=== PATIENT | male | born 1940 ===

== ENCOUNTER 2020-01-24 20:30 | Emergency (ER) | payer MEDICARE ==
[2020-01-24] MEDS: Sodium Chloride 0.9% 1,000 ML IV SCH (20:41)
[2020-01-24] MEDS ORDERED: Aspirin 81 MG Tab.Chew PO ONE ×2 (20:46→23:53)
[2020-01-24] MEDS ORDERED: Heparin Sodium 5,000 Units/ML Vial IVPUSH ONE (20:49)
[2020-01-24] MEDS ORDERED: Heparin Sodium/D5W 25,000 UNITS/500 ML BAG IV SCH (21:00)
[2020-01-24] MEDS: Adenosine 12 MG/4 ML SDV IVPUSH ONE ×4 (22:03→22:28)
[2020-01-24] MEDS ORDERED: Metoprolol Tartrate 5 MG/5 ML SDV ONE (22:38)
--- NOTE | 2020-01-24 22:49 | EDM.PDOC ---
ED HPI GENERAL MEDICAL PROBLEM - General Chief Complaint: Respiratory Problem Stated Complaint: CHEST PAIN Time Seen by Provider: 01/24/20 20:33 Source of Information: Reports: Patient, EMS History Limitations: Reports: No Limitations - History of Present Illness INITIAL COMMENTS - FREE TEXT/NARRATIVE: PMH SVT, PE. Patient developed right sided sharp chest pain with SOB. He s tates it feels like previous PE. See E[facility] for additional charting. Location: Reports: Chest Improves with: Reports: None Worsens with: Reports: Breathing Associated Symptoms: Reports: Chest Pain, Shortness of Breath chest pain Pain Score (Numeric/FACES): 3 - Related Data Allergies Allergy/AdvReac Type Severity Reaction Status Date / Time No Known Allergies Allergy Verified 01/24/20 21:26 ED ROS GENERAL - Review of Systems Review Of Systems: See Below Constitutional: Reports: No Symptoms HEENT: Reports: No Symptoms Respiratory: Reports: Shortness of Breath Cardiovascular: Reports: Chest Pain Endocrine: Reports: No Symptoms GI/Abdominal: Reports: No Symptoms : Reports: No Symptoms Musculoskeletal: Reports: No Symptoms Skin: Reports: No Symptoms Neurological: Reports: No Symptoms Psychiatric: Reports: No Symptoms Hematologic/Lymphatic: Reports: No Symptoms ED EXAM, GENERAL - Physical Exam Exam: See Below Exam Limited By: No Limitations General Appearance: Alert, No Apparent Distress Nose: Normal Inspection Throat/Mouth: Normal Inspection, Normal Oropharynx Head: Atraumatic Neck: Normal Inspection, Full Range of Motion Respiratory/Chest: Lungs Clear Cardiovascular: Normal Peripheral Pulses, Regular Rate, Rhythm, No Edema, No JVD, No Murmur Peripheral Pulses: 3+: Carotid (L), Carotid (R), Dorsalis Pedis (L), Dorsalis Pedis (R) GI/Abdominal: Normal Bowel Sounds, Soft, Non-Tender, No Distention Extremities: Normal Inspection, Normal Range of Motion, No Pedal Edema, Normal Capillary Refill Neurological: Alert, Oriented, Normal Cognition, No Motor/Sensory Deficits Psychiatric: Normal Affect, Normal Mood Skin Exam: Warm, Dry, Intact Course - Vital Signs Last Recorded V/S: Last Vital Signs Temp 98.2 F 01/24/20 21:14 Pulse 77 01/24/20 21:14 Resp 23 H 01/24/20 21:14 BP 149/86 H 01/24/20 21:14 Pulse Ox 95 01/24/20 21:14 - Orders/Labs/Meds Orders: Active Orders 24 hr Category Date Time Status Chest w Cont [CT] Stat Exams 01/24/20 20:46 Taken Heparin Sodium/D5W [Heparin 25,000 Units in D5W 500 ML] Med 01/24/20 21:00 Active 25,000 units in 500 ml IV TITRATE Medication Orders Heparin Sodium/Dextrose (Heparin 25,000 Units In D5w 500 Ml) 25,000 units in 500 mls @ 26 mls/hr IV TITRATE LIZ; Protocol Labs: Laboratory Tests 01/24/20 01/24/20 01/24/20 Range/Units 20:46 20:46 20:46 WBC 9.4 (4.0-11.0) K/uL RBC 4.46 L (4.50-6.50) M/uL Hgb 14.6 (13.0-18.0) g/dL Hct 42.1 (40.0-54.0) % MCV 94 (76-96) fL MCH 32.7 H (27.0-32.0) pg MCHC 34.7 (31.0-35.0) g/dL RDW 12.8 (11.0-16.0) % Plt Count 168 (150-400) K/uL MPV 9.6 (6.0-10.0) fL Neut % (Auto) 64.9 (45.0-70.0) % Lymph % (Auto) 24.4 (20.0-40.0) % [place] % (Auto) 9.2 (3.0-10.0) % Eos % (Auto) 1.0 (1.0-5.0) % Baso % (Auto) 0.5 (0.0-0.5) % Neut # (Auto) 6.10 (2.00-7.50) K/uL Lymph # (Auto) 2.30 (1.50-4.00) K/uL [place] # (Auto) 0.87 H (0.20-0.80) K/uL Eos # (Auto) 0.09 (0.04-0.40) K/uL Baso # (Auto) 0.05 (0.02-0.10) K/uL APTT (24.4-33.2) SECONDS D-Dimer, Quantitative 1020 H (0-400) ng/mL Sodium 141 (136-145) mmol/L Potassium 4.0 (3.5-5.1) mmol/L Chloride 103 (98-107) mmol/L Carbon Dioxide 28.2 (21.0-32.0) mmol/L Anion Gap 13.8 (5.0-15.0) mmol/L BUN 15 (8-26) mg/dL Creatinine 1.44 H (0.70-1.30) mg/dL Est Cr Clr Drug Dosing TNP Estimated GFR (MDRD) 48 L (>60) MLS/MIN BUN/Creatinine Ratio 10.4 (6-25) Glucose 122 H (74-100) mg/dL Calcium 8.7 (8.5-10.1) mg/dL Total Bilirubin 0.8 (0.0-1.0) mg/dL AST 17 (15-37) U/L ALT 20 (12-78) U/L Alkaline Phosphatase 95 (46-116) U/L Troponin I < 0.017 (0.000-0.060) ng/mL Total Protein 7.0 (6.4-8.2) g/dL Albumin 3.7 (3.4-5.0) g/dL Globulin 3.3 (2.2-4.2) g/dL Albumin/Globulin Ratio 1.1 (0.8-2.0) SARS CoV-2 RNA Rapid EMILY 01/24/20 01/24/20 Range/Units 20:49 21:08 WBC (4.0-11.0) K/uL RBC (4.50-6.50) M/uL Hgb (13.0-18.0) g/dL Hct (40.0-54.0) % MCV (76-96) fL MCH (27.0-32.0) pg MCHC (31.0-35.0) g/dL RDW (11.0-16.0) % Plt Count (150-400) K/uL MPV (6.0-10.0) fL Neut % (Auto) (45.0-70.0) % Lymph % (Auto) (20.0-40.0) % [place] % (Auto) (3.0-10.0) % Eos % (Auto) (1.0-5.0) % Baso % (Auto) (0.0-0.5) % Neut # (Auto) (2.00-7.50) K/uL Lymph # (Auto) (1.50-4.00) K/uL [place] # (Auto) (0.20-0.80) K/uL Eos # (Auto) (0.04-0.40) K/uL Baso # (Auto) (0.02-0.10) K/uL APTT 24.6 (24.4-33.2) SECONDS D-Dimer, Quantitative (0-400) ng/mL Sodium (136-145) mmol/L Potassium (3.5-5.1) mmol/L Chloride (98-107) mmol/L Carbon Dioxide (21.0-32.0) mmol/L Anion Gap (5.0-15.0) mmol/L BUN (8-26) mg/dL Creatinine (0.70-1.30) mg/dL Est Cr Clr Drug Dosing Estimated GFR (MDRD) (>60) MLS/MIN BUN/Creatinine Ratio (6-25) Glucose (74-100) mg/dL Calcium (8.5-10.1) mg/dL Total Bilirubin (0.0-1.0) mg/dL AST (15-37) U/L ALT (12-78) U/L Alkaline Phosphatase (46-116) U/L Troponin I (0.000-0.060) ng/mL Total Protein (6.4-8.2) g/dL Albumin (3.4-5.0) g/dL Globulin (2.2-4.2) g/dL Albumin/Globulin Ratio (0.8-2.0) SARS CoV-2 RNA Rapid EMILY Negative Meds: Medications Generic Name Dose Route Start Last Admin Trade Name Freq PRN Reason Stop Dose Admin Heparin Sodium/Dextrose 25,000 units in 500 mls @ 26 mls/hr 01/24/20 21:00 Heparin 25,000 Units In D5w 500 Ml IV TITRATE LIZ Protocol Discontinued Medications Generic Name Dose Route Start Last Admin Trade Name Freq PRN Reason Stop Dose Admin Aspirin 324 mg 01/24/20 20:46 01/24/20 22:08 Aspirin PO 01/24/20 20:47 324 mg ONETIME ONE Administration Heparin Sodium (Porcine) 6,700 units 01/24/20 20:49 01/24/20 22:06 Heparin Sodium IVPUSH 01/24/20 20:50 6,700 units .BOLUS ONE Administration Departure - Departure Time of Disposition: 22:50 Disposition: DC/Tfer to Acute Hospital 02 Condition: Good Clinical Impression: SVT (supraventricular tachycardia) Pulmonary embolism Qualifiers: Pulmonary embolism type: other Chronicity: acute Acute cor pulmonale presence: unspecified Qualified Code(s): I26.99 - Other pulmonary embolism without acute cor pulmonale - Discharge Information *PRESCRIPTION DRUG MONITORING PROGRAM REVIEWED*: Not Applicable *COPY OF PRESCRIPTION DRUG MONITORING REPORT IN PATIENT SEAN: Not Applicable Referrals: PCP,None [Primary Care Provider] - Additional Instructions: Spoke with Dr. Lee at [facility], he is accepting patient. Sepsis Event Note (ED) - Evaluation Sepsis Screening Result: No Definite Risk - Focused Exam Vital Signs: Vital Signs Temp Pulse Resp BP Pulse Ox 01/24/20 21:14 98.2 F 77 23 H 149/86 H 95 - My Orders Last 24 Hours: My Active Orders 01/24/20 20:46 Chest w Cont [CT] Stat 01/24/20 21:00 Heparin Sodium/D5W [Heparin 25,000 Units in D5W 500 ML] 25,000 units in 500 ml IV TITRATE - Assessment/Plan Last 24 Hours: My Active Orders 01/24/20 20:46 Chest w Cont [CT] Stat 01/24/20 21:00 Heparin Sodium/D5W [Heparin 25,000 Units in D5W 500 ML] 25,000 units in 500 ml IV TITRATE
[2020-01-24] MEDS ORDERED: Diltiazem 25 MG/5 ML SDV IVPUSH ONE (23:12)
[2020-01-24] MEDS ORDERED: Diltiazem 100 MG in Sodium Chloride 0.9% 100 ML IV SCH (23:15)
[2020-01-24] MEDS ORDERED: Metoprolol Tartrate 5 MG/5 ML SDV IVPUSH ONE (23:27)
[2020-01-24] MEDS ORDERED: Nitroglycerin 0.4 MG Tab.SL SL PRN (23:38)
[2020-01-24] MEDS ORDERED: Sodium Chloride 0.9% 10 ML Syringe FLUSH PRN (23:57)
[2020-01-25] MEDS: Sodium Chloride 0.9% 1,000 ML IV SCH (00:27)
[2020-01-25] MEDS: Adenosine 12 MG/4 ML SDV IVPUSH ONE (01:04)
[2020-01-25] MEDS ORDERED: Sodium Chloride 0.9% 1,000 ML IV SCH (20:40)
--- NOTE | 2020-01-26 08:53 | CT ---
DATE OF SERVICE: 01/24/20 CLINICAL DATA: PMH PE, CP, SOB ENHANCED CHEST CT: Multislice acquisition through the chest with IV contrast was performed. No priors. There are filling defects noted within subsegmental pulmonary arteries in both lower lobes consistent with PE. No pneumothorax. There is a very small right pleural effusion. No left pleural effusion. No aortic aneurysm or dissection. There are atelectatic changes in the dependent portion of both lungs and in both lung bases with small areas of consolidation in both lung bases. Pneumonia should be considered. The heart size is normal. There are moderate coronary artery calcifications. No significant pericardial effusion. There are nonspecific hilar and mediastinal nodes. No other significant findings. IMPRESSION: 1) Positive exam for PE. The patient's physician was notified of the findings by telephone and by [facility] preliminary radiology report. 2) Multiple other findings as discussed above. [id number] MTDD
== END 2020-01-24 22:47 ==
LOC: LB.ED 20:30
DX: I26.99 Other pulmonary embolism without acute cor pulmonale (principal); I47.1 Supraventricular tachycardia; Z86.711 Personal history of pulmonary embolism; Z20.828 Contact with and (suspected) exposure to other viral communicable diseases
CPT/HCPCS: 36415; 71260; 80053; 84484; 85025; 85379; 85730; 93005; 96374; 96375; 96376; 99285; 99285-25; A9270-GY; J0153; J1644; J3490; J7030; J7050; U0002